=== PATIENT | female | born 1965 | race Two or more races ===

== ENCOUNTER 2020-10-30 12:17 | Emergency (ER) | payer OTHER ==
[~2020-10-30] VITALS: Ht 162.6 cm; Wt 81.6 kg
--- NOTE | 2020-10-30 12:17 | NUR ---
BIB SELF C/O WORSENING HEADACHE AND DIZZINESS STARTED TUESDAY. "I FEEL ALOT OF PRESSURE ON MY EYES". TO ER BED 10, HOOKED TO MONITOR, CHANGED TO HOSP GOWN, WARM BLANKET PROVIDED, PATIENT AAO x4. NAD NOTED. AWAITING MD ABRAHAM
--- NOTE | 2020-10-30 12:34 | NUR ---
DR GONZALEZ AT BEDSIDE
[2020-10-30] MEDS ORDERED: METOCLOPRAMIDE HCL 10 MG/2 ML VIAL ONE (12:52)
[2020-10-30] MEDS ORDERED: diphenhydrAMINE HCL 50 MG/ML VIAL ONE (12:52)
[2020-10-30 12:54] LABS: BASOPHILS % (AUTO) 0.4 % (0.0-2.0); EOSINOPHILS % (AUTO) 1.3 % (0.0-6.0); HEMATOCRIT 34 % (33-45); HEMOGLOBIN 10.7 g/dL (11.5-14.8); LYMPHOCYTES # (AUTO) 1.4 /CMM (0.8-4.8); LYMPHOCYTES % (AUTO) 20.3 % (20.0-44.0); MEAN CORPUSCULAR HGB CONC 32 g/dl (31.0-36.0); MEAN CORPUSCULAR VOLUME 71 fL (82-100); MONOCYTES # (AUTO) 0.4 /CMM (0.1-1.30); MONOCYTES % (AUTO) 5.2 % (2.0-12.0); NEUTROPHILS # (AUTO) 5.1 /CMM (1.8-8.9); NEUTROPHILS % (AUTO) 72.8 % (43.0-81.0); PLATELET COUNT (AUTO) 323 /CMM (150-450); RED BLOOD CELL COUNT(AUTO) 4.76 MIL/uL (4.0-5.2)
--- NOTE | 2020-10-30 12:54 | NUR ---
PATIENT PICKED UP BY TOM PELAYO VIA [facility] FOR CT SCAN
[2020-10-30 13:16] LABS: CALCIUM, SERUM 9.4 mg/dL (8.5-10.1); CARBON DIOXIDE 28 mmol/L (21-32); CHLORIDE 103 mmol/L (98-107); CREATININE 0.8 mg/dL (0.6-1.3); GLUCOSE 110 mg/dL (74-106); POTASSIUM 3.7 mmol/L (3.5-5.1); SODIUM SERUM 140 mmol/L (136-145); UREA NITROGEN, BLOOD 14 mg/dL (7-18)
[2020-10-30] MEDS: IV NS 0.9% 1,000 ML BAG IV ONE (13:23)
[2020-10-30] MEDS: diphenhydrAMINE HCL 50 MG/ML VIAL IV ONE (13:23)
[2020-10-30] MEDS: METOCLOPRAMIDE HCL 10 MG/2 ML VIAL IV ONE (13:23)
[2020-10-30 13:38] LABS: ALANINE AMINOTRANSFERASE 36 U/L (12-78); ALBUMIN 3.6 g/dL (3.4-5.0); ALKALINE PHOSPHATASE 79 U/L (46-116); ASPARTATE AMINOTRANSFERASE 25 U/L (15-37); BILIRUBIN,DIRECT 0.1 mg/dL (0.0-0.2); BILIRUBIN,TOTAL 0.2 mg/dL (0.2-1.0); TOTAL PROTEIN, SERUM 7.3 g/dL (6.4-8.2)
[2020-10-30] MEDS ORDERED: KETOROLAC TROMETHAMINE INJ 30 MG/ML VIAL ONE (14:42)
[2020-10-30] MEDS ORDERED: NAPR-1164 PO (14:45)
[2020-10-30] MEDS ORDERED: AMLO2.5T2 PO (14:45)
--- NOTE | 2020-10-30 14:53 | NUR ---
IV removed. Catheter intact and site benign. Pressure and 4x4 applied to site. No bleeding noted.Patient discharged to home in stable condition. Written and verbal after care instructions given. Patient verbalizes understanding of instruction. Will be picked up by family from waiting room.
[2020-10-30 14:54] VITALS: BP 154/94
[2020-10-30] MEDS ORDERED: KETOROLAC TROMETHAMINE INJ 30 MG/ML VIAL IV ONE (15:00)
== END 2020-10-30 14:55 | disposition home or self-care (01) ==
LOC: ER 12:28
DX: R51.9 Headache, unspecified (principal); I10 Essential (primary) hypertension; R42 Dizziness and giddiness; Z79.899 Other long term (current) drug therapy
CPT/HCPCS: 36415; 70450; 80048; 80076; 84484; 84702; 85007; 85025; 93005; 96361; 96374; 96375; 99285; J1200; J1885; J2765; J7030 ×2

== ENCOUNTER 2021-06-16 07:32 | Emergency (ER) | payer OTHER ==
[~2021-06-16] VITALS: Ht 175.3 cm; Wt 80.7 kg
[~2021-06-16 07:32] MED LIST: AMLO2.5T2 PO; NAPR-1164 PO
--- NOTE | 2021-06-16 07:47 | NUR ---
pt ambulatory to er bed 07 c/o epigastric area pain x 10 days. states taking omeprazole w/ no relief. pt states pain is getting worst since last night and its painful to breath while seated or laying down. denies chest pain. stable vitals. awaitng md gomez.
[2021-06-16] MEDS ORDERED: MAG HYDROX/AL HYDROX/SIMETH 30 ML UDC PO ONE (08:00)
[2021-06-16] MEDS ORDERED: LIDOCAINE VISCOUS 2% UD 15 ML UDC MM ONE (08:00)
[2021-06-16] MEDS ORDERED: FAMOTIDINE (20 MG) 20 MG TABLET PO ONE (08:00)
--- NOTE | 2021-06-16 08:01 | NUR ---
dr nam at [facility] for eval.
[2021-06-16] MEDS ORDERED: LIDOCAINE VISCOUS 2% UD 15 ML UDC ONE (08:04)
[2021-06-16] MEDS ORDERED: MAG HYDROX/AL HYDROX/SIMETH 30 ML UDC ONE (08:04)
[2021-06-16] MEDS ORDERED: FAMOTIDINE (20 MG) 20 MG TABLET ONE (08:04)
--- NOTE | 2021-06-16 08:14 | NUR ---
u/s tech at bedside for gallbladder ultrasound.
[2021-06-16 08:59] LABS: CALCIUM, SERUM 7.7 mg/dL (8.5-10.1); CREATININE 0.6 mg/dL (0.6-1.3); POTASSIUM 3.8 mmol/L (3.5-5.1)
[2021-06-16] MEDS ORDERED: MAG-55 PO (09:01)
[2021-06-16] MEDS ORDERED: FAMO-131 PO (09:01)
[2021-06-16 09:05] LABS: ALBUMIN 2.9 g/dL (3.4-5.0); BILIRUBIN,DIRECT 0.1 mg/dL (0.0-0.2); BILIRUBIN,TOTAL 0.3 mg/dL (0.2-1.0); TOTAL PROTEIN, SERUM 6.4 g/dL (6.4-8.2)
[2021-06-16 09:38] LABS: BASOPHILS # (AUTO) 0.1 K/uL (0.0-0.2); BASOPHILS % (AUTO) 0.9 % (0.0-2.0); EOSINOPHILS % (AUTO) 0.4 % (0.0-6.0); HEMATOCRIT 39 % (33-45); HEMOGLOBIN 12.9 g/dL (11.5-14.8); LYMPHOCYTES # (AUTO) 1.6 K/uL (0.8-4.8); LYMPHOCYTES % (AUTO) 18.8 % (20.0-44.0); MEAN CORPUSCULAR HGB CONC 34 g/dl (31.0-36.0); MEAN CORPUSCULAR VOLUME 86 fL (82-100); MONOCYTES # (AUTO) 0.5 K/uL (0.1-1.30); MONOCYTES % (AUTO) 6.5 % (2.0-12.0); NEUTROPHILS # (AUTO) 6.2 K/uL (1.8-8.9); NEUTROPHILS % (AUTO) 73.4 % (43.0-81.0); PLATELET COUNT (AUTO) 248 K/uL (150-450); RED BLOOD CELL COUNT(AUTO) 4.51 MIL/uL (4.0-5.2); WHITE BLOOD COUNT (AUTO) 8.4 K/uL (4.3-11.0)
[2021-06-16 10:00] VITALS: BP 145/87
--- NOTE | 2021-06-16 10:01 | NUR ---
Patient discharged to home in stable condition. Written and verbal after care instructions given. Patient verbalizes understanding of instruction.
== END 2021-06-16 10:01 | disposition home or self-care (01) ==
LOC: ER 07:46
DX: K21.9 Gastro-esophageal reflux disease without esophagitis (principal); R10.13 Epigastric pain; I10 Essential (primary) hypertension; Z79.899 Other long term (current) drug therapy
CPT/HCPCS: 36415; 71045-TC; 76705-TC; 80048-TC; 80076-TC; 83690-TC; 85025-TC

== ENCOUNTER → 2021-06-30 | Emergency (ER) | payer OTHER ==
[~2021-06-30] VITALS: Ht 162.6 cm; Wt 81.2 kg
[~2021-06-30] MED LIST changes: +FAMO-131 PO; +FAMOTIDINE/PF INJ 20 MG/2 ML VIAL IV ONE; +KETOROLAC TROMETHAMINE 15 MG/ML VIAL ONE; +LIDOCAINE VISCOUS 2% UD 15 ML UDC ONE; +MAG HYDROX/AL HYDROX/SIMETH 30 ML UDC ONE; +MAG-55 PO; +ONDANSETRON HCL/PF 4 MG/2 ML VIAL ONE
--- NOTE | 2021-06-30 08:40 | NUR ---
BIBS C/O WORSENING ABDOMINAL PAIN AND MIDSTERNAL PAIN X1 MONTH, WORSE IN THE LAST 3 DAYS. PAIN IS RATED 8/10 IN SEVERITY. ADMITS N/V X3 TIMES YESTERDAY. ADMITS BURPING. PT STATES THAT PAIN STARTED SINCE THE DAY SHE STARTED DRINKING LEMON WATER WITH HER DAILY VITAMINS. ADMITS USE OF IBUPROFEN. DENIES HX OF PUD, KIDNEY STONES, GERD. PT TOOK PEPCID AND OMEPRAZOLE, NEITHER OF WHICH ALLEVIATED SYMPTOMS.
--- NOTE | 2021-06-30 09:00 | NUR ---
BLOOD SAMPLE PBTAINED AND SENT TO LAB. IV LINE CONVERTED TO SALINE LOCK
--- NOTE | 2021-06-30 09:07 | NUR ---
RADIOLOGY AT BESIDE
[2021-06-30 09:16] LABS: BASOPHILS % (AUTO) 0.2 % (0.0-2.0); HEMATOCRIT 40 % (33-45); LYMPHOCYTES # (AUTO) 1.6 K/uL (0.8-4.8); MEAN CORPUSCULAR HGB CONC 33 g/dl (31.0-36.0); MEAN CORPUSCULAR VOLUME 89 fL (82-100); MONOCYTES # (AUTO) 0.4 K/uL (0.1-1.30); MONOCYTES % (AUTO) 6.1 % (2.0-12.0); NEUTROPHILS # (AUTO) 4.2 K/uL (1.8-8.9); NEUTROPHILS % (AUTO) 66.7 % (43.0-81.0); PLATELET COUNT (AUTO) 259 K/uL (150-450); RED BLOOD CELL COUNT(AUTO) 4.44 MIL/uL (4.0-5.2); WHITE BLOOD COUNT (AUTO) 6.3 K/uL (4.3-11.0)
[2021-06-30] MEDS: IV NS 0.9% 1,000 ML BAG IV ONE (09:28)
--- NOTE | 2021-06-30 09:28 | NUR ---
PLATING STRIPPER AT BEDSIDE
[2021-06-30] MEDS: KETOROLAC TROMETHAMINE INJ 30 MG/ML VIAL IV ONE (09:34)
[2021-06-30] MEDS: FAMOTIDINE/PF INJ 20 MG/2 ML VIAL IV ONE (09:34)
[2021-06-30] MEDS: ONDANSETRON HCL/PF 4 MG/2 ML VIAL IVP ONE (09:35)
[2021-06-30] MEDS: MAG HYDROX/AL HYDROX/SIMETH 30 ML UDC PO ONE (09:35)
[2021-06-30] MEDS: LIDOCAINE VISCOUS 2% UD 15 ML UDC MM ONE (09:35)
[2021-06-30 09:38] LABS: ALANINE AMINOTRANSFERASE 36 U/L (12-78); ALBUMIN 2.8 g/dL (3.4-5.0); ALKALINE PHOSPHATASE 86 U/L (46-116); ASPARTATE AMINOTRANSFERASE 32 U/L (15-37); BILIRUBIN,TOTAL 0.5 mg/dL (0.2-1.0); CALCIUM, SERUM 7.6 mg/dL (8.5-10.1); CARBON DIOXIDE 26 mmol/L (21-32); CHLORIDE 104 mmol/L (98-107); CREATININE 0.6 mg/dL (0.6-1.3); GLUCOSE 82 mg/dL (74-106); LIPASE 135 U/L (73-393); POTASSIUM 4.2 mmol/L (3.5-5.1); SODIUM SERUM 138 mmol/L (136-145); TOTAL PROTEIN, SERUM 6.5 g/dL (6.4-8.2); UREA NITROGEN, BLOOD 11 mg/dL (7-18)
--- NOTE | 2021-06-30 09:40 | NUR ---
IV FLUIDS RUNNING Addendum: 06/30/21 at 0976 by PRAKASH END TIME [id number]
[2021-06-30 09:59] LABS: BILIRUBIN,DIRECT 0.1 mg/dL (0.0-0.2)
--- NOTE | 2021-06-30 11:20 | NUR ---
Patient discharged to home in stable condition. Written and verbal after care instructions given. Patient verbalizes understanding of instruction.
--- NOTE | 2021-06-30 11:20 | NUR ---
IV removed. Catheter intact and site benign. Pressure and 4x4 applied to site. No bleeding noted.
[2021-06-30 11:23] VITALS: BP 128/93
== END | disposition home or self-care (01) ==
LOC: ER 08:30
DX: R10.13 Epigastric pain (principal); R11.2 Nausea with vomiting, unspecified; I10 Essential (primary) hypertension; Z79.899 Other long term (current) drug therapy
CPT/HCPCS: 36415; 71045; 76705; 80048; 80076; 83690; 84484; 85025; 96361; 96374; 96375; 99285; J1885; J2405; J3490; J7030

== ENCOUNTER 2021-09-18 05:01 | Emergency (ER) | payer OTHER ==
[~2021-09-18] VITALS: Ht 162.6 cm; Wt 81.6 kg
[~2021-09-18 05:01] MED LIST changes: -FAMOTIDINE/PF INJ 20 MG/2 ML VIAL IV ONE; -KETOROLAC TROMETHAMINE 15 MG/ML VIAL ONE; -LIDOCAINE VISCOUS 2% UD 15 ML UDC ONE; -MAG HYDROX/AL HYDROX/SIMETH 30 ML UDC ONE; -ONDANSETRON HCL/PF 4 MG/2 ML VIAL ONE
--- NOTE | 2021-09-18 05:59 | NUR ---
PATIENT BIBSELF C/O ROMAN FOR THE PAST 3 DAYS, FEELING STRESSED, NOT ABLE TO SLEEP. PATIENT IS A/O X 4, RR EVEN AND UNLABORED, NO SOB NOTED, PT CONNECTED TO MONITORS.
[2021-09-18] MEDS ORDERED: diphenhydrAMINE HCL 50 MG/ML VIAL ONE (06:15)
[2021-09-18] MEDS ORDERED: PROCHLORPERAZINE EDISYLATE 10 MG/2 ML VIAL ONE (06:15)
--- NOTE | 2021-09-18 06:24 | NUR ---
RAC #20G S/L; PATENT AND INTACT. BLOOD COLLECTED AND GIVEN TO LAB
[2021-09-18] MEDS ORDERED: IV NS 0.9% 1,000 ML BAG IV ONE (06:30)
[2021-09-18] MEDS ORDERED: diphenhydrAMINE HCL 50 MG/ML VIAL IV ONE (06:30)
[2021-09-18] MEDS ORDERED: PROCHLORPERAZINE EDISYLATE 10 MG/2 ML VIAL IVP ONE (06:30)
[2021-09-18 06:41] VITALS: BP 134/87
--- NOTE | 2021-09-18 06:54 | NUR ---
COVID SWAB SENT TO LAB
[2021-09-18 06:59] LABS: BASOPHILS % (AUTO) 0.6 % (0.0-2.0); EOSINOPHILS % (AUTO) 2.3 % (0.0-6.0); HEMATOCRIT 37 % (33-45); LYMPHOCYTES # (AUTO) 2.4 K/uL (0.8-4.8); MEAN CORPUSCULAR HGB CONC 32 g/dl (31.0-36.0); MEAN CORPUSCULAR VOLUME 85 fL (82-100); MONOCYTES # (AUTO) 0.5 K/uL (0.1-1.30); NEUTROPHILS # (AUTO) 2.5 K/uL (1.8-8.9); NEUTROPHILS % (AUTO) 44.1 % (43.0-81.0); PLATELET COUNT (AUTO) 341 K/uL (150-450); RED BLOOD CELL COUNT(AUTO) 4.39 MIL/uL (4.0-5.2); WHITE BLOOD COUNT (AUTO) 5.6 K/uL (4.3-11.0)
[2021-09-18] MEDS ORDERED: KETOROLAC TROMETHAMINE 15 MG/ML VIAL ONE (07:28)
[2021-09-18] MEDS ORDERED: KETOROLAC TROMETHAMINE INJ 30 MG/ML VIAL IV ONE (07:30)
--- NOTE | 2021-09-18 08:03 | NUR ---
IV removed. Catheter intact and site benign. Pressure and 4x4 applied to site. No bleeding noted.Patient discharged to home in stable condition. Written and verbal after care instructions given. Patient verbalizes understanding of instruction.
[2021-09-18 08:38] LABS: CALCIUM, SERUM 8.3 mg/dL (8.5-10.1); CARBON DIOXIDE 24 mmol/L (21-32); CHLORIDE 105 mmol/L (98-107); CREATININE 0.7 mg/dL (0.6-1.3); GLUCOSE 81 mg/dL (74-106); SODIUM SERUM 139 mmol/L (136-145); UREA NITROGEN, BLOOD 13 mg/dL (7-18)
== END 2021-09-18 08:39 | disposition home or self-care (01) ==
LOC: ER 05:05
DX: G43.909 Migraine, unspecified, not intractable, without status migrainosus (principal); Z20.822 Contact with and (suspected) exposure to COVID-19; I10 Essential (primary) hypertension; Z79.899 Other long term (current) drug therapy
CPT/HCPCS: 36415; 70450; 71045; 80048; 84484; 85025; 87426; 93005; 96361; 96374; 96375; 99285; C9803; J0780; J1200; J1885; J7030